=== PATIENT | female | born 1995 | race Caucasian/White ===

== ENCOUNTER → 2018-03-20 | Outpatient (CLI) | payer OTHER ==
[~2018-03-20] MED LIST: ESCI20TA38 PO; MIRT-17 PO; NO ROUTINE MEDS
[2018-03-20 09:04] LABS: PLATELET COUNT, AUTOMATED 215 K/uL (150-450)
== END ==
LOC: LAB 08:49
PROVIDERS: ATTEND Student in an Organized Health Care Education/Training Program
DX: Z34.91 Encounter for supervision of normal pregnancy, unspecified, first trimester (principal)
CPT/HCPCS: 36415; 81001; 85025; 86592; 86703; 86762; 86850; 86900; 86901; 87088; 87340

== ENCOUNTER → 2018-04-06 | Outpatient (CLI) | payer OTHER | LOC: LAB 08:24 | PROVIDERS: ATTEND Student in an Organized Health Care Education/Training Program | DX: Z34.91 Encounter for supervision of normal pregnancy, unspecified, first trimester (principal) | CPT/HCPCS: 87491; 87591 ==

== ENCOUNTER → 2018-04-18 | Outpatient (CLI) | payer OTHER ==
[~2018-04-18] MED LIST changes: +NITR-105 PO
== END ==
LOC: LAB 13:19
PROVIDERS: ATTEND Student in an Organized Health Care Education/Training Program
DX: O26.899 Other specified pregnancy related conditions, unspecified trimester (principal)
CPT/HCPCS: 87088

== ENCOUNTER → 2018-06-19 | Outpatient (CLI) | payer OTHER ==
--- NOTE | 2018-06-19 14:08 | RADIOLOGY IMAGING REPORT ---
FACILITY: [facility] [place] PATIENT NAME: Cata Mandujano : 1995 MR: [id number] V: [id number] EXAM DATE: ORDERING PHYSICIAN: FITZ FRANCO TECHNOLOGIST: [facility] [place] Patient: Cata Mandujano : 1995 Visit/Account:[id number] Date of Sevice: 06/19/2018 [facility] [place] HISTORY: Anatomic survey COMPARISON: None. TECHNIQUE: Transabdominal imaging was performed for assessment of the fetus and maternal pelvic s tructures. Transvaginal imaging was not performed. FINDINGS: Intrauterine gestations: One. presentation: Variable. heart rate: 152 bpm. Amniotic fluid volume: Normal; SCAR 11.59 cm; MVP 5.73 cm. Placenta: Posterior. Uterus: Gravid, otherwise grossly unremarkable where visualized. Maternal adnexa/ovaries: Grossly unremarkable, ovaries not visualized. Cervix: Grossly long and closed. Gestational Parameters: BPD: 4.88 cm, 64th percentile HC: 18.33 cm, 55th percentile AC: 15.23 cm, 44th percentile FL: 3.52 cm, 66th percentile Average ultrasound age (AUA): 20 weeks/ six days Estimated age based on LMP: 20 weeks/ three days Estimated weight (EFW): 375 grams +/- 55 grams, consistent with 63rd percentile Anatomic Survey: Intracranial structures, 4-chamber heart, stomach, kidneys, urinary bladder, spine, 3-vessel cord and cord insertion are unremarkable. Two upper and two lower extremities visualized. IMPRESSION: Single viable fetus in variable presentation with an estimated gestational age by measurements of 20 weeks and six days. Estimated gestational age by LMP is 20 weeks and three days. Estimated weight 375 g which is consistent with the 63rd percentile Report Dictated By: Linsey Walsh MD at 06/19/2018 1:59 PM Report E-Signed By: Linsey Walsh MD at 06/19/2018 2:04 PM WSN:[email or web address]
== END ==
LOC: RAD 08:57
PROVIDERS: ATTEND Student in an Organized Health Care Education/Training Program
DX: Z02.9 Encounter for administrative examinations, unspecified (principal)

== ENCOUNTER → 2018-08-15 | Outpatient (CLI) | payer OTHER ==
[~2018-08-15] MED LIST changes: +DIPH0.5D12 IM; +PREN-127 PO
[2018-08-15 09:49] LABS: PLATELET COUNT, AUTOMATED 171 K/uL (150-450)
== END ==
LOC: LAB 08:07
PROVIDERS: ATTEND Student in an Organized Health Care Education/Training Program
DX: Z34.92 Encounter for supervision of normal pregnancy, unspecified, second trimester (principal)
CPT/HCPCS: 36415; 82950; 85025

== ENCOUNTER 2018-08-16 19:33 | Outpatient (CLI) | payer OTHER ==
[~2018-08-16] VITALS: Ht 157.5 cm; Wt 65.3 kg
[2018-08-16 20:00] VITALS: BP 120/89; Ht 157.5 cm; Wt 65.3 kg
[2018-08-16 21:30] LABS: PLATELET COUNT, AUTOMATED 172 K/uL (150-450)
--- NOTE | 2018-08-16 21:33 | History & Physical ---
History of Present Illness Age of Patient: 22 : 1 Para or TPAL: 0 EDC per LMP: Nov 03, 2018 EDC per U/S: Nov 03, 2018 Estimated Gestational Age: 28.5 Chief Complaint frequent uterine contractions History of Present Illness Ms. Mandujano is a 22yo at 28.5 based on TRISTA of 11/03/18, confirmed with first trimester ultrasound, who presents to labor and delivery with complaint of uterine contractions since noon today. She states that she was busy today, but doing activities that are normal for her, and she noticed contractions that felt tight and uncomfortable and became increasingly frequent. She states that they've lasted all day. When she laid down this evening, she felt that they were more frequent than when standing. She timed them at every 6 minutes. She denies LOF or PVB. No fevers/chills. No nausea/emesis. She reports normal movements. She denies abdominal trauma, denies tobacco or drug use. She is noted to have diastolic blood pressures in the 90s (120s/130s/80s-90s) since in triage. This is new for her, review of records shows blood pressures in office 120-130/80s range. She denies headache, vision changes, RUQ pain. Her father has HTN and her sister has had two pregnancies complicated by pre- eclampsia. 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 No illicit drug use. No tobacco use. Drinks alcohol socially. Student. Family History: FH: diabetes mellitus PGF FH: hypertension FATHER Med Rec Home Meds Reported Medications Vits W-Ca,Fe,Fa(<1MG) ( VITAMINS) 1 Each Tablet, 1 EACH PO DAILY, TAB 08/15/18 Discontinued Scripts Nitrofurantoin Monohyd/M-Cryst (MACROBID 100 MG CAPSULE) 100 Mg Capsule, 100 MG PO Q12H for 7 Days, #14 CAPSULE Prov:FITZ FRANCO 04/18/18 Review of Systems Constitutional: No Fever, No Weight Loss, No Weight Gain, No Chills, No Night Sweats, No Other Neurological: No Syncope, No Confusion, No Weakness, No Dizziness, No Slurred Speech, No Other Eyes: No Vision Change, No Loss of Vision, No Photophobia, No Other ENT: No Hearing Loss, No Sinus Congestion, No Sore Throat, No Ear Ache, No Tinnitus, No Other Cardiovascular: No Chest Pain, No Palpitations, No Orthostatic Hypotension, No Other Respiratory: No Shortness of Breath, No Cough, No Wheezing, No Other Gastrointestinal: No Nausea, No Vomiting, No Diarrhea, No Dysphagia, No Constipation, No Early Satiety, No Hematemesis, No Hematochezia, No Melena, No A bdominal Pain, No Other Genitourinary: No Dysuria, No Hematuria, No Urinary Incontinence, No Other Musculoskeletal: No Pain, No Sprain, No Strain, No Impaired Mobility, No Other Psychiatric: No Depression, No Anxiety, No Other Exam General Exam Vital Signs afebrile BPS [id number]/80s-90s General Apperance: Alert/Awake/No Acute Distress (appears anxious) Neuro: No Gross deficits Eyes: PERRLA Cardiovascular: Regular Rate and Rhythm Respiratory: Clear to Auscultation Abdomen: Soft, Non-Tender, Non-Distended, Gravid - Non-Tender Extremities: No Cyanosis,Clubbing or Edema, Reflexes (normal) Integumentary: Skin Intact without Lesions or Rash Psychological: Alert & Oriented X3, Appropriate Mood & Affect Cervical Dialation: 0 Cervical Effacement (%): 0 Cervical Consistency: Soft Cervical Position: Posterior Station: -2 Presentation: Vertex (by ultrasound) Uterine Contractions(Q min): 10 Uterine Contraction Strength: Mild UC Resting Tone: Soft Fetus Feeling Movement?: Yes Estimated Weight(grams): 1313 Heart Tones: 150 Heart Tone Variabilty: Moderate FHT Accelerations: 15X15 FHT Decelerations: None FHT Category: I Medical Decision Making Data Points Result Diagram: 08/16/18212308/16/182123 Imaging Ultrasound/Imaging cervical length 3.8mm EFW: 1313g, vertex posterior placenta Pre-Admit Course Medical Record Review: Yes VTE Prophylasis: Adult Deep Vein Thrombosis/Pulmonary: No Pharmacological Contraindicati: Pt at Low Risk for VTE Mechanical Contraindications: Pt at Low Risk for VTE Assessment and Plan Hospital Day: 1 Problems: (1) uterine contractions in third trimester, antepartum Status: Acute Assessment & Plan: 22yo at 28.5 with contractions. well- being reassuring. Cervix closed and long on transvaginal ultrasound, 38mm. FFN negative. Digital cervical exam reassuring. Long discussion with patient about overall low risk for labor, all questions answered. -allow discharge home -discussed hydration as well as routine precautions -will notify OB team that patient was in triage tonight (2) Gestational [-induced] hypertension without significant proteinuria, third trimester Status: Acute Assessment & Plan: 22yo at 28.5 who presents with contractions. testing reassuring. Noted to have serial diastolic blood pressures in the mild gestational HTN range (90s). No clinical signs or symptoms of pre- eclampsia. All labwork wnl. Patient's father with HTN and her sister had two pregnancies complicated by pre-eclampsia. As these blood pressures were not done at least 4 hours apart, she does not meet strict criteria for gestational HTN. We discussed that her blood pressure will continue to be monitored in the office, and we reviewed warning signs and symptoms of pre-eclampsia. All of her questions were answered. CAROLE TELLES MD Aug 16, 2018 21:33
--- NOTE | 2018-08-16 22:03 | OB/GYN Discharge Summary ---
Discharge Summary Reason for Hosp/Final Diag: (1) uterine contractions in third trimester, antepartum Status: Acute Hospital Course & Plan: 22yo at 28.5 with contractions. well-being reassuring. Cervix closed and long on transvaginal ultrasound, 38mm. FFN negative. Digital cervical exam reassuring. Long discussion with patient about overall low risk for labor, all questions answered. -allow discharge home -discussed hydration as well as routine precautions -will notify OB team that patient was in triage tonight (2) Gestational [-induced] hypertension without significant proteinuria, third trimester Status: Acute Hospital Course & Plan: 22yo at 28.5 who presents with contractions. testing reassuring. Noted to have serial diastolic blood pressures in the mild gestational HTN range (90s). No clinical signs or symptoms of pre-eclampsia. All labwork wnl. Patient's father with HTN and her sister had two pregnancies complicated by pre-eclampsia. As these blood pressures were not done at least 4 hours apart, she does not meet strict criteria for gestational HTN. We discussed that her blood pressure will continue to be monitored in the office, and we reviewed warning signs and symptoms of pre-eclampsia. All of her questions were answered. Weight (Pounds): 115 Result Diagram: 08/16/18212308/16/182123 Condition: Improved Discharge: Home Home Meds Reported Medications Vits W-Ca,Fe,Fa(<1MG) ( VITAMINS) 1 Each Tablet, 1 EACH PO DAILY, TAB 08/15/18 Discontinued Scripts Nitrofurantoin Monohyd/M-Cryst (MACROBID 100 MG CAPSULE) 100 Mg Capsule, 100 MG PO Q12H for 7 Days, #14 CAPSULE Prov:FITZ FRANCO DO 04/18/18 Follow up with: Dr. Franco [phone] Follow up in: Keep scheduled appoint Discharge Diet: As Tolerates Discharge Activity: As Tolerates CAROLE TELLES MD Aug 16, 2018 22:03
--- NOTE | 2018-08-16 23:08 | RADIOLOGY IMAGING REPORT ---
FACILITY: [facility] - [place] PATIENT NAME: Cata Mandujano : 1995 MR: [id number] V: [id number] EXAM DATE: ORDERING PHYSICIAN: CAROLE TELLES TECHNOLOGIST: Location: [facility] Patient: Cata Mandujano : 1995 Visit/Account:[id number] Date of Sevice: 08/16/2018 ultrasound; cervical length evaluation: Indication: contractions. Technique: Limited evaluation, with Doppler. Focused imaging of the cervix. Comparison: 06/19/2018 position and heart rate: There is a single live intrauterine gestation in a cephalic presentati on. The heart rate is 130. anatomy: Unremarkable, as visualized. A detailed anatomical evaluation was not performed at thi s time. Measurements, EFA, and EDC: BPD - 7.4 cm (29 weeks 6 days) Head circumference - 27.3 cm (29 weeks 6 days) Abdominal circumference - 24.9 cm (29 weeks 1 day) Femur length - 5.4 cm (28 weeks 3 days) EFW - 1313 g, 46th percentile Estimated age - 29 weeks 3 days EDC - 10/29/2018 Placenta: Posterior and fundal. There are no signs of placenta previa or abruption. Cervical length: 3.6 cm. The cervix is closed. There is no evidence of funneling, placenta previa, or vasa previa. Amniotic fluid: The SCAR measures 16.9 cm. The MVP was 6.4 cm. IMPRESSION: There is a single live intrauterine gestation in cephalic presentation, as detailed above . The estimated age is 29 weeks 3 days. The cervical length is 3.6 cm. The placenta and SCAR appear unremarkable. Report Dictated By: Roge Lopez MD at 08/16/2018 10:53 PM Report E-Signed By: Roge Lopez MD at 08/16/2018 11:04 PM WSN:[id number]
--- NOTE | 2018-08-16 23:08 | RADIOLOGY IMAGING REPORT ---
FACILITY: [facility] - [place] PATIENT NAME: Cata Mandujano : 1995 MR: [id number] V: [id number] EXAM DATE: ORDERING PHYSICIAN: CAROLE TELLES TECHNOLOGIST: Location: [facility] [place] Patient: Cata Mandujano : 1995 Visit/Account:[id number] Date of Sevice: 08/16/2018 ultrasound; cervical length evaluation: Indication: contractions. Technique: Limited evaluation, with Doppler. Focused imaging of the cervix. Comparison: 06/19/2018 position and heart rate: There is a single live intrauterine gestation in a cephalic presentati on. The heart rate is 130. anatomy: Unremarkable, as visualized. A detailed anatomical evaluation was not performed at thi s time. Measurements, EFA, and EDC: BPD - 7.4 cm (29 weeks 6 days) Head circumference - 27.3 cm (29 weeks 6 days) Abdominal circumference - 24.9 cm (29 weeks 1 day) Femur length - 5.4 cm (28 weeks 3 days) EFW - 1313 g, 46th percentile Estimated age - 29 weeks 3 days EDC - 10/29/2018 Placenta: Posterior and fundal. There are no signs of placenta previa or abruption. Cervical length: 3.6 cm. The cervix is closed. There is no evidence of funneling, placenta previa, or vasa previa. Amniotic fluid: The SCAR measures 16.9 cm. The MVP was 6.4 cm. IMPRESSION: There is a single live intrauterine gestation in cephalic presentation, as detailed above . The estimated age is 29 weeks 3 days. The cervical length is 3.6 cm. The placenta and SCAR appear unremarkable. Report Dictated By: Roge Lopez MD at 08/16/2018 10:53 PM Report E-Signed By: Roge Lopez MD at 08/16/2018 11:04 PM WSN:[id number]
== END 2018-08-16 22:02 | disposition home or self-care (01) ==
LOC: OB 19:33 → L&D 19:33 → OB 19:33 → UNDOADMOB 19:33 → L&D 22:02 → UNDODISOB 22:02 → EDSTATUS 08-28 10:49
PROVIDERS: ATTEND Student in an Organized Health Care Education/Training Program
DX: O47.03 False labor before 37 completed weeks of gestation, third trimester (principal); O13.3 Gestational [pregnancy-induced] hypertension without significant proteinuria, third trimester; Z3A.28 28 weeks gestation of pregnancy
CPT/HCPCS: 36415; 59025; 76815; 76817; 81001; 82040; 82247; 82310; 82374; 82435; 82565; 82731; 82947; 84075; 84132; 84155; 84295; 84450; 84460; 84520; 84550; 85025; 99213; G0378; G0379

== ENCOUNTER → 2018-09-19 | Outpatient (CLI) | payer OTHER ==
[2018-08-16 20:00] VITALS: BMI 26.3
[~2018-09-19] MED LIST changes: -DIPH0.5D12 IM; +DIPH0.5S2 IM
[2018-09-19 16:15] LABS: PLATELET COUNT, AUTOMATED 181 K/uL (150-450)
== END ==
LOC: LAB 15:27
PROVIDERS: ATTEND Student in an Organized Health Care Education/Training Program
DX: O13.3 Gestational [pregnancy-induced] hypertension without significant proteinuria, third trimester (principal)
CPT/HCPCS: 36415; 82040; 82247; 82310; 82374; 82435; 82565; 82570; 82947; 84075; 84132; 84155; 84156; 84295; 84450; 84460; 84520; 85025

== ENCOUNTER → 2018-09-25 | Outpatient (CLI) | payer OTHER ==
[2018-08-16 20:00] VITALS: BMI 26.3
== END ==
LOC: LAB 08:10
PROVIDERS: ATTEND Student in an Organized Health Care Education/Training Program
DX: Z36.85 Encounter for antenatal screening for Streptococcus B (principal)
CPT/HCPCS: 87081

== ENCOUNTER → 2018-09-28 | Outpatient (CLI) | payer OTHER ==
[2018-08-16 20:00] VITALS: BMI 26.3
== END ==
LOC: LAB 12:57
PROVIDERS: ATTEND Student in an Organized Health Care Education/Training Program
DX: O13.3 Gestational [pregnancy-induced] hypertension without significant proteinuria, third trimester (principal)
CPT/HCPCS: 36415; 82040; 82247; 82310; 82374; 82435; 82565; 82570; 82947; 84075; 84132; 84155; 84156; 84295; 84450; 84460; 84520; 85027

== ENCOUNTER → 2018-10-05 | Outpatient (CLI) | payer OTHER ==
[2018-08-16 20:00] VITALS: BMI 26.3
[~2018-10-05] MED LIST changes: +BET6I IM ONLY
== END ==
LOC: LAB 10:42
PROVIDERS: ATTEND Student in an Organized Health Care Education/Training Program
DX: O13.3 Gestational [pregnancy-induced] hypertension without significant proteinuria, third trimester (principal)
CPT/HCPCS: 36415; 82040; 82247; 82310; 82374; 82435; 82565; 82570; 82947; 84075; 84132; 84155; 84156; 84295; 84450; 84460; 84520; 85027

== ENCOUNTER → 2018-10-05 | Outpatient (CLI) | payer OTHER ==
[2018-08-16 20:00] VITALS: BMI 26.3
--- NOTE | 2018-10-05 17:08 | RADIOLOGY IMAGING REPORT ---
FACILITY: [facility] [place] PATIENT NAME: Cata Mandujano : 1995 MR: [id number] V: [id number] EXAM DATE: ORDERING PHYSICIAN: FITZ FRANCO TECHNOLOGIST: Location: [facility] - [place], [place] Patient: Cata Mandujano : 1995 Visit/Account:[id number] Date of Sevice: 10/05/2018 EXAMINATION: Ultrasound transabdominal OB > 14 weeks with anatomic evaluation HISTORY: Growth follow-up COMPARISON: OB ultrasound 08/16/2018 TECHNIQUE: Transabdominal imaging was performed for assessment of the fetus and maternal pelvic structures. T ransvaginal imaging was not performed. FINDINGS: Placenta: Posterior and high. without previa. Uterus: Gravid, otherwise normal Cervix: Long and closed. Maternal Ovaries: Not visualized. Maternal and other adnexa findings: Negative. Intrauterine gestations: One. presentation: Cephalic heart rate: Normal and regular at 160 bpm Amniotic fluid index: 15.19 cm Largest amniotic fluid pocket: 4.70 cm Gestational Parameters: BPD: 8.66 cm 35 weeks/ 0 days, 32nd percentile HC: 32.39 cm 36 weeks/ 5 days, 38 percentile AC: 32.54 cm 36 weeks/ 4 days, 76 percentile FL: 6.51 cm 33 weeks/ 4 days, 4 percentile Average ultrasound age (AUA): 35 weeks/4 days, Estimated gestational age by LMP: 35 weeks/6 days, TRISTA 11/03/2018 Estimated weight (EFW): 2714 grams +/- 397 grams EFW for LMP: 42nd percentile Anatomic Survey: Visualized intracranial contents and the visualized portions of the abdomen and pelvis are normal. IMPRESSION: 1. Single living intrauterine fetus in a vertex presentation. 2. Normal survey. 3. Ultrasound age is consistent with gestational age based on LMP. Gestational age by ultrasound is 3 5 weeks and 4 days, and gestational age by LMP is 35 weeks and 6 days corresponding to estimated date of delivery 11/03/2018. Report Dictated By: Tae Trevino at 10/05/2018 4:52 PM Report E-Signed By: Tae Trevino at 10/05/2018 5:04 PM WSN:[id number]
== END ==
LOC: RAD 12:59
PROVIDERS: ATTEND Student in an Organized Health Care Education/Training Program
DX: O13.3 Gestational [pregnancy-induced] hypertension without significant proteinuria, third trimester (principal)

== ENCOUNTER 2018-10-11 10:28 | Inpatient (IN) | payer OTHER ==
[~2018-10-11] VITALS: Ht 157.5 cm; Wt 73.5 kg
[2018-10-11] MEDS ORDERED: FAMOTIDINE(*) 20MG/50ML PREMIX 50 ML IVPB PRN (10:54)
[2018-10-11] MEDS ORDERED: LIDOCAINE 1% LOCAL 300 MG/30ML INJ PRN (10:55)
[2018-10-11] MEDS ORDERED: LIDOCAINE/SOD BICARB 8.4% SYR SC PRN (10:55)
[2018-10-11] MEDS ORDERED: fentaNYL CITR 100 MCG/2 ML AMP IVP PRN (10:55)
[2018-10-11] MEDS ORDERED: MAGNESIUM SULF 20 GM/500 ML IV 500 ML IV PRN (10:55)
[2018-10-11] MEDS ORDERED: FLUSH 10 ML SYR IVP PRN (10:55)
[2018-10-11] MEDS ORDERED: METOCLOPRAMIDE 10 MG/2 ML SDV IVP PRN (10:55)
[2018-10-11] MEDS ORDERED: LR(*) 1000 ML BAG 1,000 ML ONE ×2 (11:23→21:01)
[2018-10-11] MEDS ORDERED: MAGNESIUM SUL* 4 GM/100 ML BAG 100 ML ONE (11:25)
[2018-10-11 11:31] LABS: PLATELET COUNT, AUTOMATED 155 K/uL (150-450)
[2018-10-11 11:39] VITALS: Ht 157.5 cm; Wt 73.5 kg
[2018-10-11 12:21] LABS: INR 0.93
[2018-10-11] MEDS ORDERED: MISOPROSTOL 25 MCG CAP ONE (12:28)
[2018-10-11] MEDS: MISOPROSTOL 25 MCG CAP BU PRN ×4 (12:31→20:35)
[2018-10-11] MEDS: MAGNESIUM SULF 20 GM/500 ML IV 500 ML IV SCH ×2 (13:19→22:38)
--- NOTE | 2018-10-11 13:34 | HISTORY AND PHYSICAL ---
DATE OF ADMISSION: October 11, 2018 CHIEF COMPLAINT Intrauterine at 36 weeks and 5 days along with headache and elevated blood pressure. HISTORY OF PRESENT ILLNESS The patient is a 23-year-old 1, para 0 at approximately 36 weeks and 5 days by last menstrual period, who presented to my office with complaints of worsening swelling, headache, and elevated blood pressure over the last 3 days. The patient was diagnosed with with gestational hypertension at around 31 weeks of and her pressures have been fairly well controlled with behavior modifications and limited activity until now. The patient has had no other medical problems in this . She denies vision changes or abdominal pain. She does say that the baby is moving well. She is not having contractions and she denies vaginal bleeding. PAST MEDICAL HISTORY Is significant for ovarian cysts. PAST SURGICAL HISTORY [place] teeth. ALLERGIES None. CURRENT MEDICATIONS vitamin. GYNECOLOGIC HISTORY Last menstrual period was January 27, 2018. Her periods are regular. She denies a history of any STIs or abnormal pap-smears. SOCIAL HISTORY Is negative for alcohol, tobacco or illicit drug use. 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 She is . FAMILY HISTORY Significant for diabetes type 2 and high blood pressure. PHYSICAL EXAMINATION VITAL SIGNS: Blood pressure is ranging anywhere from 130 to 160 over 90 to 110. Heart rate was normal, respirations were normal, and her oxygen saturation was normal. GENERAL: The patient is alert and oriented x3 with no acute distress. She does appear swollen particularly in her face. CARDIOVASCULAR: Regular rate and rhythm without any murmurs. LUNGS: Clear to auscultation bilaterally. There was no wheezing, rales, or rhonchi. ABDOMEN: Soft, gravid, no tenderness to palpation. A limited bedside ultrasound was performed showing the fetus to be in cephalic presentation. PELVIC: Sterile vaginal exam was 1, 50, -1, Cruz score was 5. heart tones were category I with good accelerations and TOCO did show some irritable contractions. EXTREMITIES: 1+ bilateral lower extremity edema. NEUROLOGIC: DTRs are 1+ patellar without clonus bilaterally. LABORATORY DATA WBC 11.3, hemoglobin 13.6, platelets of 155,000. Sodium 136, potassium 3.7, chloride 107, CO2 23, BUN 7, creatinine 0.7. AST 22, ALT 19, alkaline phosphatase 145. Her urine was positive for protein. ASSESSMENT/PLAN Intrauterine at 36 weeks and 5 days with severe gestational hypertension. Will start magnesium sulfate 4 gram bolus, followed by 2 grams per hour. Will also start oral Cytotec 25 mg given buccally to induce contractions. The patient was counselled on risk, benefits of induction of labor due to the presence of her severe pressure and her severe symptoms, particularly headache. She understands the risk, benefits and agrees to proceed. The patient was also counselled on the risk of respiratory distress at . She did receive steroids probably about a week ago, but she was counselled that if the baby did have trouble transitioning after alma, may require transfer to a tertiary facility and she is okay with this as well. Will monitor patient closely. KOBY
[2018-10-11] MEDS: ACETAMINOPHEN 500 MG TAB PO PRN (15:52)
--- NOTE | 2018-10-11 17:24 | Labor Progress Note ---
Labor Subjective Progress Notes Subjective Headache improved with Tylenol. Feeling some tightening but nothing super uncomfortable. Feeling Movement?: Yes Vaginal Discharge/Fluid: No Bloody Show, No Clear Fluid, No Bloody Fluid, No Green Tinged Fluid, No Dark Green Fluid, No Mucous, No Small Amount, No Moderate Amount, No Large Amount, No Other Labor Pain: Mild Neurological: Headache Eyes: No Visual Disturbances Labor Objective Cervical Dialation: 1 (Per RN exam) Cervical Effacement (%): 80 Cervical Consistency: Soft Station: -2 Presentation: Vertex Fetus Heart Tone Variabilty: Moderate FHT Accelerations: 15X15 FHT Category: I Other Result Diagram: 10/11/18 1118 10/11/18 1118 Assessment and Plan [employer] Assessment: Stable [employer] Plan: Routine Labor/Induct Care Problems: (1) Preeclampsia Status: Acute Assessment & Plan: Has not required any BP medication at this time. Is on magnesium for seizure prophylaxis. Received 2nd dose of 25 mcg cytotec Buccally around 1630. (2) 36 weeks gestation of Problem Qualifiers (1) Preeclampsia: Trimester: third trimester Qualified Codes: O14.93 - Unspecified pre- eclampsia, third trimester FITZ FRANCO October 11, 2018 17:24
[2018-10-11] MEDS ORDERED: CALCIUM GLUC 10% 100 MG/ML VL IVP PRN (19:50)
[2018-10-11] MEDS ORDERED: ONDANSETRON 4 MG/2 ML VIAL ONE (20:03)
[2018-10-11] MEDS: ONDANSETRON 4 MG/2 ML VIAL IVP PRN (20:06)
[2018-10-11] MEDS ORDERED: LR(*) 1000 ML BAG 1,000 ML IV PRN (20:40)
--- NOTE | 2018-10-11 20:40 | Labor Progress Note ---
Labor Subjective Progress Notes Subjective Pt is complaining of a headache and blurred vision, but denies RUQ pain. She is also starting to feel very nauseated. Her mother and sister remain at bedside and are very supportive. Her will be here at some point too. She having uterine tightening, but not feeling pain. Feeling Movement?: Yes Labor Pain: Comfortable Neurological: Headache (requesting tylenol) Eyes: No Visual Disturbances Labor Objective Presentation: Vertex Uterine Contractions(Q min): 3 Uterine Contraction Strength: Mild UC Resting Tone: Soft Fetus Heart Tones: 120 Heart Tone Variabilty: Moderate FHT Accelerations: Present FHT Decelerations: None FHT Category: I General Exam General Appearance: Alert/Awake/No Acute Distress, Afebrile ENT: Normal Neck: No Masses Cardiovascular: Normal Rhythm & Peripheral Pulses, No Edema Respiratory: No Respiratory Distress Abdomen: Gravid - Non-Tender, RUQ Non-Tender, Fundus - Non-Tender : Normal Musculoskeletal: No Weakness/Pain Extremities: No Cyanosis,Clubbing or Edema Integumentary: Skin Intact without Lesions or Rash Psychological: Alert & Oriented X3, Appropriate Mood & Affect Other Result Diagram: 10/11/18 1118 10/11/18 1118 Assessment and Plan Problems: (1) Preeclampsia Status: Acute Assessment & Plan: CG is a 23 y.o. at 36w5d wks with an Estimated Date of Delivery: 11/01/18 dated by LMP and first trimester US Labor state: IOL for Preeclampsia with severe features. No blood pressure meds have been needed and BP mild range to normal now. Two doses of 25mcg of buccal Cytotec given for cervical ripening. Small cervical change in 4 hours. Will plan for a 3rd dose of 25mcg of buccal Cytotec now. Cruz score 7. Will anticipate starting Pitocin in 4 hours and then consider AROM depending on SVE. Patient and family understand plan. Continue side to side position changes, Tylenol for headache, and continuous magnesium sulfate 2gm/hr IV for seizure prophylaxis. well-being: Category I FHT: continuous monitoring for high risk and magnesium sulfate IV Maternal well-being: normal to mild range BP, afebrile, membranes presumed intact. Will continue to monitor BP every 30 minutes and treat BP for > 160/110 PNL: GBS neg, Type/Rh O+, rubella immune Pain Management: Plan for epidural when requested, comfortable now Feed: Breast c/b: * GHTN and now Preclampsia with severe features: P:C .3, other labs WNL. BP severe range on admit and now mild range Anticipate cervical change, re-evaluate in 3-4 hours or prn (2) 36 weeks gestation of Problem Qualifiers (1) Preeclampsia: Trimester: third trimester Qualified Codes: O14.93 - Unspecified pre- eclampsia, third trimester MAGEN BALBUENA CNM October 11, 2018 20:40
[2018-10-11] MEDS ORDERED: LABETALOL HCL 100 MG/20ML VIAL IVP PRN (20:55)
[2018-10-11] MEDS ORDERED: OXYTOCIN 30 UNIT/NS 500 ML 500 ML IV PRN (21:21)
[2018-10-11] MEDS ORDERED: ceFAZolin(*) 2GM/D5W 50ML 50 ML IVPB PRN (21:21)
[2018-10-11] MEDS ORDERED: FENTANYL/ROPIVACAINE 100 ML BAG EPI PRN (21:30)
[2018-10-11] MEDS ORDERED: LIDOCAINE/PF 2% 200MG/10ML AMP 200 MG/10 ML AMPUL EPI PRN (21:30)
[2018-10-11] MEDS ORDERED: BUPIVACAINE 0.5% INJ 30ML VIAL EPI PRN (21:30)
[2018-10-11] MEDS ORDERED: fentaNYL CITR 100 MCG/2 ML AMP IT PRN (21:30)
[2018-10-11] MEDS ORDERED: LIDO/EPI 2% MPF 1:200,000 20ML EPI PRN (21:30)
[2018-10-11] MEDS ORDERED: BUPIVACAINE 0.25% MPF INJ EPI PRN (21:30)
[2018-10-12] VITALS (8 sets, daily range): BP systolic 119–128; BP diastolic 76–92
[2018-10-12] MEDS: ACETAMINOPHEN 500 MG TAB PO PRN (00:28)
[2018-10-12] MEDS ORDERED: OXYTOCIN 30 UNIT/NS 500 ML 500 ML IV PRN (00:30)
[2018-10-12] MEDS: MISOPROSTOL 25 MCG CAP BU PRN (00:41)
[2018-10-12] MEDS ORDERED: OXYTOCIN 30 UNIT/NS 500 ML 500 ML IV SCH (04:30)
[2018-10-12] MEDS ORDERED: ePHEDrine 25 MG/5 ML DISP.SYR IVP ONE ×2 (05:19→06:24)
[2018-10-12] MEDS: ONDANSETRON 4 MG/2 ML VIAL IVP PRN ×2 (05:33→09:28)
[2018-10-12] MEDS: ePHEDrine 25 MG/5 ML DISP.SYR IVP PRN ×3 (05:48→06:12)
[2018-10-12] MEDS ORDERED: ePHEDrine 25 MG/5 ML DISP.SYR IVP PRN (06:13)
--- NOTE | 2018-10-12 06:16 | Anesthesia OB Pre-Anes Eval ---
History of Present Illness Anesthesia Start Date: October 12, 2018 Anesthesia Start Time: 05:27 OB Anesthesia Diagnosis: gestational hypertension, induction - medical Current Complication: gestational hypertention EDC: Nov 03, 2018 : 1 Para: 0 Vital Signs: 118/78 82 18 Pain Ratin Result Diagram: 10/11/18 1118 10/11/18 1118 Height (Inches): 62.00 Weight (Pounds): 162 Past Medical History Medical History: no pertinent history Surgical History: no surgical history Attended Childbirth Classes?: No Hx Anesthesia Reactions: No Hx Family Anesthesia Reaction: No Current Medications: magnesium sulfate, pitocin Past Complications: gestational hypertention Home Meds Reported Medications Vits W-Ca,Fe,Fa(<1MG) ( VITAMINS) 1 Each Tablet, 1 EACH PO DAILY, TAB 08/15/18 Allergies: Coded Allergies: No Known Drug Allergies (Verified , 09/05/09) Anesthesia OB ROS Neurological: No migraines/headaches, No seizures, No neuropathy, No other ENT: Denies Tooth caps, Denies Loose teeth, Denies Chipped teeth, Denies Dentures, Denies Bridges, Denies Retainers, Denies Veneers, Denies Implants, Denies Tongue ring, Denies Other Pulmonary: No asthma, No smoker (pks/day/yrs), No other Airway Class: ll Cardiovascular ROS: No edema, No arrhythmia, No other GI ROS: ice chips Last Solids Date: October 11, 2018 Last Solids Time: 11:00 ROS: No Herpes, No STD(s), No Liver Disease, No Renal Disease, No Other Endocrine ROS: No diabetes, No gestational diabetes, No thyroid disorder, No other Musculoskeletal ROS: No low back pain, No low back injury, No scoliosis, No other ASA Classification: 3 Assessment and Plan Anesthesia Plan: LEAH REYNOLDS CRNA October 12, 2018 06:16
--- NOTE | 2018-10-12 06:19 | Procedure Note ---
Anesthetic Placement Note Anesthesia Plan: CSE Permit for Anesthesia Signed: Yes Anesthesia Technique: Patient Sitting Anesthesia Prep: Chlorhexidine Interspace: L 3-4 Local Anesthetic: 1% Lidocaine, 25 Gauge Needle Amount Local - cc's: 3 Anesthesia Needle: 17g Touhy/Schliff Anesthesia Attempts: 1 Loss of Resistance: Normal Saline Depth of DELMA (cm): 4.5 Epidural Needle Placement: No CSF, No Blood, No Parasthesia Intrathecal Needle: 27 Gauge Pencan Cerebral Spinal Fluid: Yes, Clear Catheter Insertion (cm): 4.5 (9cm @skin) Catheter Type: Jolly - Spring Wound Epidural Dressing: Tegaderm, Tape Anesthesia Tray: Lot Number ([id number]), Expiration Date (01/16), Reference Number ([id number]) Anesthesia Medications: Intrathecal Dose: mcg Fentanyl (10), mg Marcaine MPF (2), Time (0540) Epidural Test Dose: 1.5 Lido/Epi (1:200,000), Dose - mL (3), Time (0542), Negative Epidural Infusion: 0.2% Ropivicaine, With Fentanyl 2mcg/ml, Start Time: (0602) Epidural Pump Setting: Bolus Dose - mL (8), Lockout - Minutes (30), Maintenance Rate - mL/hr (5), Maximum per Hour - mL (21) Complications: None LEAH TEJEDA CRNA October 12, 2018 06:19
--- NOTE | 2018-10-12 07:06 | Labor Progress Note ---
Labor Subjective Progress Notes Subjective Pt still reports headache. Feeling more comfortable with epidural. Lots of questions about inductions process. Vaginal Discharge/Fluid: Bloody Show, Clear Fluid Labor Pain: Mild Neurological: Headache; No Other Eyes: No Visual Disturbances Labor Objective Vaginal Discharge/Fluid?: Bloody Show, Clear Fluid (with amniotomy) Cervical Dialation: 2.5 Cervical Effacement (%): 70 Cervical Consistency: Moderate Cervical Position: Mid Station: -1 Presentation: Vertex Uterine Contractions(Q min): 7 Uterine Contraction Strength: Moderate UC Resting Tone: Soft Fetus Heart Tones: 130 Heart Tone Variabilty: Moderate FHT Accelerations: 15X15 FHT Decelerations: None FHT Category: I (aroun 0610 baby would have been category two, right after Epdirual. 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 Pt received 4 doses of 25 mcg cytotec buccally. S/P amniotomy. Oxytocin being infused for IOL. Have not treated any blood pressures at this point. Increase Oxytocin to get adequate contraction pattern. (2) 36 weeks gestation of Problem Qualifiers (1) Preeclampsia: Trimester: third trimester Qualified Codes: O14.93 - Unspecified pre- eclampsia, third trimester FITZ FRANCO DO October 12, 2018 07:06
[2018-10-12] MEDS ORDERED: ACETA/BUTAL/CAFF 325/50/40 TAB PO PRN (09:20)
--- NOTE | 2018-10-12 13:43 | Labor Progress Note ---
Labor Subjective Progress Notes Subjective Patient beginning to get extremely tired. Having difficulty doing minimal/nominal tasks. Reports headache is mildly improved with medications. 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 If magnesium level is less than 8 will restart magnesium sulfate infusion at this time. Cervical stretching performed will increase oxytocin to adequate contraction pattern. Discussed options with patient for delivery if she is not making any cervical change in the next 1-2 cervical exams. Patient is hesitant for delivery this time. Will continue to increase oxytocin accordingly for adequate pattern. Recheck in 2 hours. (2) 36 weeks gestation of Problem Qualifiers (1) Preeclampsia: Trimester: third trimester Qualified Codes: O14.93 - Unspecified pre- eclampsia, third trimester FITZ FRANCO DO October 12, 2018 13:43
--- NOTE | 2018-10-12 17:22 | Anesthesia Progress Note ---
Progress/Maintenance Anesthesia Note Date: October 12, 2018 Anesthesia Note Time: 16:50 Pain Intensity: 5 Pump: On Pump Rate (ML/HR): 6 Sensory Level: Pressure Motor Level: Bending Knees-Bilateral Dilatation: 10 Position: Left Drug Bolus: Other (Fentanyl 90 mcgs) Anesthesia Treatment: Pt pressed BAR ASSISTANT button for bolus LEAH TEJEDA CRNA October 12, 2018 17:22
[2018-10-12] MEDS ORDERED: CARBOPROST TROMETHAM 250MCG/ML IM ONLY ONE (17:51)
--- NOTE | 2018-10-12 18:47 | Anesthesia Progress Note ---
Assessment and Plan Anesthesia Plan: CSE Anesthesia Stop Day: October 12, 2018 Anesthesia Stop Time: 18:25 LEAH TEJEDA CRNA October 12, 2018 18:47
[2018-10-12] MEDS ORDERED: ACETAMINOPHEN 325 MG TAB PO PRN (18:50)
[2018-10-12] MEDS ORDERED: LANOLIN OINT 7 GM TUBE TP PRN (18:50)
[2018-10-12] MEDS ORDERED: MAGNESIUM HYDROXIDE* 30ML UDCP PO PRN (18:50)
[2018-10-12] MEDS ORDERED: BENZOCAINE 20% 60 ML BTL TP PRN (18:50)
[2018-10-12] MEDS ORDERED: GLYCERIN/WITCH HAZEL LEAF 1 PK TP PRN (18:50)
[2018-10-12] MEDS ORDERED: APAP/HYDROCODONE 325/5 TAB PO PRN (18:50)
[2018-10-12] MEDS ORDERED: HYDROCORTISONE 2.5% CR 30GM TB PR PRN (18:50)
[2018-10-12] MEDS ORDERED: MAGNESIUM SULF 20 GM/500 ML IV 500 ML ONE (19:01)
--- NOTE | 2018-10-12 19:04 | OB Delivery Note ---
Delivery Note Vaginal Delivery Type: Spont. Vaginal Delivery Delivery Date: October 12, 2018 Delivery Time: 18:11 Estimated Gestational Age(wks): 36.6 Length of Labor Stage I (hrs): 11 Length of Labor Stage II (hrs): 1 Labor Stage III (minutes): 5 Delivery Anesthesia: Epidural Sex: Female Weight (gms): 2590 (5#11oz) Apgars: 1 Minute (6), 5 Minute (7), 10 Minute (8) Repair Needed: Laceration, Labial, 1st Degree Folded Towel Machine Operator in Attendence: Yes FITZ FRANCO DO October 12, 2018 19:04
[2018-10-12] MEDS: MAGNESIUM SULF 20 GM/500 ML IV 500 ML IV SCH (19:45)
[2018-10-12] MEDS ORDERED: IBUPROFEN 800 MG TAB PO SCH (20:00)
--- NOTE | 2018-10-12 20:52 | DELIVERY NOTE ---
DELIVERY DATE: October 12, 2018 SURGEON: Bladimir Cruz DO ANESTHESIA: Epidural. PREOPERATIVE DIAGNOSES 1. A 23-year-old 1, para 0, at 36-6/7 weeks' gestation. 2. Preeclampsia with severe features. 3. Induction of labor. POSTOPERATIVE DIAGNOSES 1. A 23-year-old 1, para 0, at 36-6/7 weeks' gestation. 2. Preeclampsia with severe features. 3. Induction of labor. 4. Delivered. PROCEDURE PERFORMED Spontaneous vaginal delivery with repair of first-degree midline laceration. FINDINGS Live-born female at 1811 on 10/12/18 with Apgars of 6, 7, and 8, weighing 2590 g, 5 pounds 11 ounces, three-vessel cord, intact placenta, over a first- degree midline laceration. ESTIMATED BLOOD LOSS 500 mL. PATHOLOGY None. COMPLICATIONS None known. CONDITION Stable x2. Mother and to remain in the LDRP. COUNTS Correct for all needles, laps, sponges, and instruments. LABOR SUMMARY Patient is a 23-year-old 1, para 0, at 36-6/7 weeks' gestation who presented to Labor and Delivery on 10/11/2018 after being seen in the clinic and was noted to have significantly elevated blood pressures there as well as a headache. She was sent to Labor and Delivery. She continued to have elevated blood pressures greater than 140/90 and continued to have a headache. She was given Tylenol. The headache did not improve. Labs were drawn and were normal. She did have an elevated protein/creatinine ratio. She was admitted with the diagnosis of preeclampsia with severe features. She was started on magnesium sulfate for seizure prophylaxis. She did undergo induction of labor with misoprostol 25 mcg buccally for cervical ripening. She underwent four doses with a dose given every four hours x4. After the fourth dose, patient was noted to be 2 to 3 cm. She underwent amniotomy with clear amniotic fluid. She did have an epidural, and at that time secondary to epidural effect there were a few repetitive late decelerations. This was alleviated with maternal position changes as well as IV fluid bolus and some ephedrine. Once this was given, the late decelerations improved significantly, and the strip went back to category 1. The patient was then started on oxytocin. She had an IUPC and a scalp electrode placed. The oxytocin was titrated to an adequate contraction pattern. The patient made slow initial cervical change, but she did progress to approximately 5 cm by early afternoon. By the early afternoon, the oxytocin and contraction pattern became more consistent. The patient began to make significant cervical change with the baby remaining mostly category 1. At approximately 5:00, the patient felt significant pressure. She was noted to be anterior lip. Shortly thereafter, she was noted to be complete. After coaching by the nursing staff, the patient began pushing. After approximately just under an hour pushing, the delivery team was called and assembled. DELIVERY SUMMARY The patient was placed in the lithotomy position. She was prepped and draped in the usual manner. With maternal effort, the 's head was brought to the position. Once the 's head was delivered, gentle downward motion was used to deliver the anterior shoulder under the pubic symphysis, followed by gentle upward motion to deliver the posterior shoulder. At this point, the remainder of the 's body delivered spontaneously. There was a short umbilical cord noted, so the baby was placed just above the pubic bone. The was vigorously cleaned by nursing staff. Mouth and nose were bulb suctioned. After approximately one minute, the cord was clamped. The was taken over to the warmer to be evaluated by the scheduler maintenance secondary to prematurity and magnesium. At this point, cord blood gases were obtained. The placenta delivered with gentle cord traction. Once the placenta delivered, the uterus was massaged and deemed firm. Upon inspection of the perineum, vagina, cervix, and labia, it was noted that there was a first-degree midline laceration. This was repaired with a 3-0 Vicryl Rapide in the usual manner. At this point, the patient was cleaned. The labor bed was reassembled, and the and the mother were allowed to continue to lynch. Because of the patient's preeclampsia with severe features, a Neri catheter was placed , and the patient will remain with Neri catheter and magnesium sulfate for approximately 24 hours. Plan to do maternal labs in the morning. Labs had minimally changed throughout the labor induction process. Only significant change was increasing creatinine from 0.7 to 0.8. MTDD
[2018-10-12] MEDS: DOCUSATE CALCIUM 240 MG CAP PO SCH (21:43)
[2018-10-13] VITALS (20 sets, daily range): BP systolic 97–140; BP diastolic 68–101
[2018-10-13] MEDS ORDERED: LR(*) 1000 ML BAG 2,000 ML ONE (00:09)
[2018-10-13] MEDS ORDERED: LR(*) 1000 ML BAG 1,000 ML IV PRN (01:15)
[2018-10-13] MEDS: IBUPROFEN 800 MG TAB PO SCH ×3 (05:00→21:21)
[2018-10-13] MEDS: MAGNESIUM SULF 20 GM/500 ML IV 500 ML IV SCH (06:03)
[2018-10-13] MEDS: DOCUSATE CALCIUM 240 MG CAP PO SCH ×2 (08:21→21:21)
[2018-10-13] MEDS ORDERED: INFLUENZA VIRUS VAC 0.5ML SYR IM ONLY ONE (09:00)
[2018-10-13] MEDS ORDERED: DIPHTH/TETANUS/ACEL. PERTUSSIS IM ONLY ONE (09:00)
[2018-10-13] MEDS ORDERED: MEASLES,MUMP,RUBELLA VAC 0.5ML SUBQ ONE (09:00)
[2018-10-13] MEDS ORDERED: MAGNESIUM SUL* 4 GM/100 ML BAG 100 ML IVPB ONE (10:55)
--- NOTE | 2018-10-13 12:04 | OB/GYN Progress Note ---
OB Subjective Progress Notes Subjective Doing good this morning. Reports minimal bleeding. Tolerating regular diet. Not ambulatory because of magnesium precautions. Still has haynes catheter secondary to magnesium. \with minimal difficulty. No headaches. GI: NEG Nausea, NEG Vomiting, NEG Flatus, NEG Bowel Movement : Voiding Well Pain: Mild Neurological: Headache; No Other Eyes: No Visual Disturbances OB Objective Physical Exam Vital Signs Date Time Temp Pulse Resp B/P (MAP) Pulse Ox O2 Delivery O2 Flow Rate FiO2 10/13/18 07:49 97.7 72 17 134/93 (107) 97 Room Air Intake and Output 10/13/18 07:00 Intake Total 5716 ml Output Total 5750 ml Balance -34 ml Intake Oral 1300 ml IV Total 4416 ml Output Urine Total 5750 ml # Voids 10 General Appearance: Alert/Awake/No Acute Distress, Afebrile ENT: Normal Neck: No Masses Cardiovascular: Normal Rhythm & Peripheral Pulses, No Edema Respiratory: No Respiratory Distress, Clear to Auscultation Abdomen: Soft, Non-Tender, Non-Distended, Fundus Firm : Normal Musculoskeletal: No Weakness/Pain Extremities: No Cyanosis,Clubbing or Edema Integumentary: Skin Intact without Lesions or Rash Psychological: Alert & Oriented X3, Appropriate Mood & Affect Result Diagram: 10/13/1863910/13/18639 Assessment and Plan 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 Will not repeat them unless change in patient status. Pt to have magnesium turned off at 1800. DC haynes catheter at that time too. Plan for BP check next week and then 2 week follow up in the office. (2) 36 weeks gestation of Problem Qualifiers (1) Preeclampsia: Trimester: third trimester Qualified Codes: O14.93 - Unspecified pre- eclampsia, third trimester FITZ FRANCO October 13, 2018 12:04
[2018-10-13] MEDS ORDERED: ONDANSETRON 4 MG/2 ML VIAL IVP PRN (12:05)
--- NOTE | 2018-10-13 16:34 | Anesthesia Post Eval Note ---
Anesthesia Post Eval Note Vital Signs 10/13/18 07:49 Temp 97.7 Pulse 72 Resp 17 B/P (MAP) 134/93 (107) Pulse Ox 97 O2 Delivery Room Air Pt able to participate in Eval: Yes Cardiovascular Status: Satisfactory Respiratory Status: Satisfactory Pain Managment: Satisfactory PO Nausea/Vomiting: Satisfactory Temperature Management: Satisfactory Mental Status: Satisfactory, Alert, Oriented X3 Post-Op Hydration Status: Satisfactory, Tolerating PO Well, Voiding w/o Difficulty Anesthesia Type: CSE Anesthesia Tolerance: Remains on magnesium LEAH TEJEDA CRNA October 13, 2018 16:34
[2018-10-14 00:15] VITALS: BP 99/67
[2018-10-14] MEDS: IBUPROFEN 800 MG TAB PO SCH (04:44)
[2018-10-14 04:57] VITALS: BP 128/81
[2018-10-14 07:30] VITALS: BP 130/90
[2018-10-14] MEDS ORDERED: IBUP800T37 PO (10:03)
--- NOTE | 2018-10-14 10:04 | OB/GYN Discharge Summary ---
Discharge Summary Reason for Hosp/Final Diag: (1) Preeclampsia Status: Acute (2) 36 weeks gestation of Status: Resolved (3) Care and examination immediately after delivery Onset Date: ~ 10/12/2018 Status: Acute Hospital Course & Plan: Admission Diagnoses: IOL for Preeclampsia with severe features Reason for Hospitalization: IOL for Preeclampsia with severe features, labor, and care Procedures Performed: Delivery Type: Hospital Course: Patient is a 23-year-old 1 now para 1, at 36-6/7 weeks' gestation who presented to Labor and Delivery on 10/11/2018 after being seen in the clinic and was noted to have significantly elevated blood pressures there as well as a headache. She was sent to Labor and Delivery. She continued to have elevated blood pressures greater than 140/90 and continued to have a headache. She was given Tylenol. The headache did not improve. Labs were drawn and were normal. She did have an elevated protein/creatinine ratio. She was admitted with the diagnosis of preeclampsia with severe features. She was started on magnesium sulfate for seizure prophylaxis. She did undergo induction of labor with misoprostol 25 mcg buccally for cervical ripening. She underwent four doses with a dose given every four hours x4. After the fourth dose, patient was noted to be 2 to 3 cm. She underwent amniotomy with clear amniotic fluid. She did have an epidural, and at that time secondary to epidural effect there were a few repetitive late decelerations. This was alleviated with maternal position changes as well as IV fluid bolus and some ephedrine. Once this was given, the late decelerations improved significantly, and the strip went back to category 1. The patient was then started on oxytocin. She had an IUPC and a scalp electrode placed. The oxytocin was titrated to an adequate contraction pattern. The patient made slow initial cervical change, but she did progress to approximately 5 cm by early afternoon. By the early afternoon, the oxytocin and contraction pattern became more consistent. The patient began to make significant cervical change with the baby remaining mostly category 1. At approximately 5:00, the patient felt significant pressure. She was noted to be anterior lip. Shortly thereafter, she was noted to be complete. After coaching by the nursing staff, the patient began pushing. After approximately just under an hour pushing, the delivery team was called and assembled. Delivery Information: See delivery note Estimated blood loss: 500cc Episiotomy: none Laceration: first degree repaired Pain Management: Continuos lumbar epidural Subjective: Pt is feeling great today and feels ready to be discharged Abdominal pain: very minimal and tolerating with Motrin Perineal pain: mild Vaginal bleeding: scant since delivery Flatus: yes UTI symptoms: denies Feeding modality: , reports a good latch and no nipple soreness, cracks, or bleeding Problems with breast feeding: none Bowel movement: not yet Ambulating: yes Preeclampsia symptoms: Denies Nausea/vomiting: none Objective Exam: Vitals: mild range BP, afebrile Breasts: Soft, nontender, nipples everted and no cracks or bleeding, +colostrum Abdomen: FF 2<U Perineum: healing well with good approximation and no swelling Lochia: red, scant no lots Extremities: BLE soft, non tender, neg homans Disposition: Patient discharged to home in medically stable condition. No Known Allergies Medication Instructions Given to the Patient at Discharge: Take Ibuprofen 800mg PO TID for 5-7 days as needed Follow-up Appointment: 1 week for BP check and then 2 & 6 weeks with Fitz alcantara MD Activity/Restrictions: Pelvic rest; nothing in vagina for six weeks. Return Precautions: Patient instructed to call the clinic or return to hospital for fever > 101 degree F; chills; severe nausea or vomiting; inability to tolerate anything by mouth for > 24 hours; increasingly severe abdominal/pelvic pain; foul smelling vaginal discharge; vaginal bleeding > 1 pad per hour for > 2 hours; separation, drainage, or redness of incision or laceration site. Reviewed depression and pre-eclampsia s/s and when to seek care. Lates Vital Signs Vital Signs Date Time Temp Pulse Resp B/P (MAP) Pulse Ox O2 Delivery O2 Flow Rate FiO2 10/14/18 07:30 98.1 56 15 130/90 (103) 96 Room Air Weight (Pounds): 162 Result Diagram: 10/13/1863910/13/18639 Condition: Improved Discharge: Home Home Meds Reported Medications Vits W-Ca,Fe,Fa(<1MG) ( VITAMINS) 1 Each Tablet, 1 EACH PO DAILY, TAB 08/15/18 Follow up Referrals: SITE MEDICAL DIRECTOR @ [facility] with FITZ FRANCO DO Follow up in: 2 wks PO, 5-7 days Discharge Diet: As Tolerates Discharge Activity: As Tolerates, No Heavy Lifting x 6 wks, No Heavy Lifting > 10lb, Bed Rest, Pelvic Rest Special Instructions: Problem Qualifiers (1) Preeclampsia: Trimester: third trimester Qualified Codes: O14.93 - Unspecified pre- eclampsia, third trimester MAGEN BALBUENA CNM October 14, 2018 10:04
[2018-10-14] MEDS: DOCUSATE CALCIUM 240 MG CAP PO SCH (11:48)
== END 2018-10-14 12:33 | disposition home or self-care (01) | DRG 807 ==
LOC: OB 10:28
PROVIDERS: ADMIT Obstetrics & Gynecology; ATTEND Obstetrics & Gynecology
PROC: 3E0P7VZ Introduction of Hormone into Female Reproductive, Via Natural or Artificial Opening (ICD-10-PCS; 2018-10-11)
PROC: 10E0XZZ Delivery of Products of Conception, External Approach (ICD-10-PCS; principal; 2018-10-12)
PROC: 0HQ9XZZ Repair Perineum Skin, External Approach (ICD-10-PCS; 2018-10-12)
PROC: 10907ZC Drainage of Amniotic Fluid, Therapeutic from Products of Conception, Via Natural or Artificial Opening (ICD-10-PCS; 2018-10-12)
PROC: 10H07YZ Insertion of Other Device into Products of Conception, Via Natural or Artificial Opening (ICD-10-PCS; 2018-10-12)
PROC: 4A1H74Z Monitoring of Products of Conception, Cardiac Electrical Activity, Via Natural or Artificial Opening (ICD-10-PCS; 2018-10-12)
DX: O14.14 Severe pre-eclampsia complicating childbirth (principal); Z37.0 Single live birth; O70.0 First degree perineal laceration during delivery; O69.3XX0 Labor and delivery complicated by short cord, not applicable or unspecified; Z3A.36 36 weeks gestation of pregnancy
CPT/HCPCS: 36415; 82040; 82247; 82310; 82374; 82435; 82565; 82570; 82947; 83615; 83735; 84075; 84132; 84155; 84156; 84295; 84450; 84460; 84520; 84550; 85025; 85027; 85049; 85379; 85384; 85610; 85730; 86850; 86900; 86901; J2405; J2590; J3010; J3475; J7120; S0020